=== PATIENT | female | born 1945 | race Caucasian/White ===

== ENCOUNTER 2016-11-01 14:03 | Emergency (ER) | payer SELFPAY ==
--- NOTE | 2016-11-01 14:09 | Emergency Department Report ---
Chief Complaint: Back Pain/Injury Stated Complaint: BACK PAIN Time Seen by Provider: 11/01/16 14:03 - HPI History of Present Illness: PT states she has chronic back pain. PT states she was dx cauda equina syndrome and she was told that she was going to get a scan but she has not gotten a scan. PT also states she has fibromyalgia and chronic fatigue syndrome. pt is in pain management - ROS Review of Systems: + chronic low back pain + changes to stool - Exam Physical Exam: PT is anxious in triage no acute resp distress pt examined in wheelchair MSE screening note: Focused history and physical exam performed. Due to findings the following was ordered: ED Disposition for MSE Condition: Stable
[2016-11-01 14:14] VITALS: BP 102/50
[2016-11-01 14:48] LABS: Basophils % (Auto) 0.8 % (0.0-1.8); Eosinophils % (Auto) 2.5 % (0.0-4.3); Hematocrit 38.3 % (30.3-42.9); Mean Corpuscular HGB Conc 31 % (30-34); Mean Corpuscular Volume 75 fl (79-97); Platelet Count 381 K/mm3 (140-440); Red Cell Distribution Width 17.2 % (13.2-15.2); White Blood Count 9.6 K/mm3 (4.5-11.0)
[2016-11-01 14:57] LABS: Mean Corpuscular Hemoglobin 24 pg (28-32)
[2016-11-01 15:03] LABS: BUN/Creatinine Ratio 13.33; Calcium 9.1 mg/dL (8.4-10.2); Chloride 96.2 mmol/L (98-107); Potassium 4.1 mmol/L (3.6-5.0)
== END 2016-11-01 15:55 | disposition left against medical advice (07) ==
LOC: ED 14:03
DX: M54.89 Other dorsalgia (principal); Z53.21 Procedure and treatment not carried out due to patient leaving prior to being seen by health care provider
CPT/HCPCS: 36415; 80048; 85025